=== PATIENT | female | born 1945 | race Two or more races ===

== ENCOUNTER 2018-10-11 10:56 | Outpatient (CLI) | payer OTHER | END 2018-10-11 13:39 | disposition home or self-care (01) | LOC: MRI 10:56 | DX: M25.561 Pain in right knee (principal); M25.562 Pain in left knee | CPT/HCPCS: 73721 ==

== ENCOUNTER 2018-10-18 12:18 | Outpatient (CLI) | payer OTHER | END 2018-10-18 14:38 | disposition home or self-care (01) | LOC: SONOGRAMA 12:18 | DX: M25.512 Pain in left shoulder (principal); M75.42 Impingement syndrome of left shoulder ==

== ENCOUNTER 2018-11-29 09:30 | Inpatient (IN) | payer OTHER ==
[~2018-11-29] VITALS: Ht 149.9 cm; Wt 81.6 kg
[2018-11-29] MEDS ORDERED: TOPROL XL50 M1 PO (13:33)
[2018-11-29] MEDS ORDERED: COZAAR25 MG PO (13:34)
== END 2018-12-09 16:06 | DRG 470 ==
LOC: SURH 12-07 08:35 → O/R 12-07 08:35 → RECOVERY 12-07 09:30 → SURH 12-07 15:12
PROVIDERS: ADMIT Orthopaedic Surgery
PROC: 0SRC0J9 Replacement of Right Knee Joint with Synthetic Substitute, Cemented, Open Approach (ICD-10-PCS; principal; 2018-12-07 10:00)
DX: M17.11 Unilateral primary osteoarthritis, right knee (principal); D62 Acute posthemorrhagic anemia; I10 Essential (primary) hypertension